=== PATIENT | male | born 1970 | race Caucasian/White ===

== ENCOUNTER → 2022-08-26 12:34 | Outpatient (CLI) | payer OTHER, SELFPAY ==
--- NOTE | ~2022-08-26 | CT_ITS ---
CT Scan of the Chest without Contrast: Clinical Indication: Dyspnea Technique: Contiguous sections were acquired throughout the chest without intravenous contrast. Dose reduction technique was used on this scan by utilizing automated exposure control and iterative recon struction technique. The dose-length product (DLP) was 793.59 mGy-cm. Findings: There is no evidence of any significant mediastinal, hilar or axillary lymphadenopathy. Calcified med iastinal and left hilar lymph nodes are noted. The mediastinal soft tissues appear normal. There is no evidence of pleural or pericardial effusion. 6 mm nodule along the right major fissure noted. There is a 5 mm noncalcified right lower lobe pulmon addie nodule (axial image 73). There is an additional 5 mm right basilar pulmonary nodule (axial image 82). Calcified left upper lobe granuloma noted. Images through the upper abdomen reveal no abnormalities. Impression: 5 mm right basilar noncalcified pulmonary nodules, as detailed above. According to Fleischner Society criteria, for a low-risk patient, no further follow-up required. For a high-risk patient, consider 1 2 month follow-up CT. Additional evidence of prior granulomatous disease. Reviewed, dictated and finalized at location . Impression: 5 mm right basilar noncalcified pulmonary nodules, as detailed above. According to Fleischner Society criteria, for a low-risk patient, no further follow-up r equired. For a high-risk patient, consider 12 month follow-up CT. Additional evidence of prior granulomatous disease.
== END ==
PROVIDERS: PCP Family Medicine; Visit Provider Family Medicine
DX: R06.00 Dyspnea, unspecified (principal); R91.8 Other nonspecific abnormal finding of lung field
CPT/HCPCS: 71250

== ENCOUNTER 2022-10-20 10:25 | Outpatient (CLI) | payer OTHER, SELFPAY ==
--- NOTE | 2022-10-20 11:32 | P.PCNPFT_ITS ---
PFT Procedure Performed PFT Procedure Performed Plethysmography (Lung Vol) Diffusing Cap (DLCO) Flow Vol Loop Spirometry w/o Bronchodil PFT Interpretation Lung volumes are unremarkable. Spirometry showed normal expiratory flow rates and a normal FEV1 to FVC ratio of 81%. No post-bronchodilator study was carried out. Lung diffusion capacity is within the normal range at 100% predicted. The flow-volume loop is unremarkable Impression: Spirometry, lung volumes, and lung diffusion capacity all within th e normal range.
== END 2022-10-20 10:26 | disposition home or self-care (01) ==
PROVIDERS: PCP Family Medicine; Visit Provider Family Medicine
DX: R06.00 Dyspnea, unspecified (principal)
CPT/HCPCS: 94375; 94726; 94729

== ENCOUNTER 2023-04-16 08:58 | Emergency (ER) | payer OTHER, SELFPAY ==
--- NOTE | 2023-04-16 09:04 | ED.GENADULT ---
HPI - General Adult General Chief complaint: Upper Respiratory Infection Stated complaint: Sore Throat History of Present Illness HPI narrative: 52 y/o male presented for c/o sore throat for one month. Takes azelastine spray and montelukast as well as omeprazole as directed. Denies increase in nasal drainage or congestion. Sore throat is worse in the morning. Hx WILFRIDO, compliant with cpap. Was unable to get in to see pcp or ENT. Denies cough, sob, n/v/d/f/c. Not taking anything otc for symptoms. Related Data Home Medications Medication Instructions Recorded Confirmed azelastine 137 mcg (0.1 %) nasal 2 spray intranasal BID 04/16/23 04/16/23 spray aerosol diclofenac sodium 75 mg 75 mg PO BID PRN joint pain 04/16/23 04/16/23 tablet,delayed release losartan 100 1 tablet PO DAILY 04/16/23 04/16/23 mg-hydrochlorothiazide 25 mg tablet montelukast 10 mg tablet 10 mg PO DAILY 04/16/23 04/16/23 omeprazole 20 mg capsule,delayed 20 mg PO DAILY 04/16/23 04/16/23 release Allergies Allergy/AdvReac Type Severity Reaction Status Date / Time poison wade extract Allergy Unknown Rash Verified 04/16/23 09:04 Grass Allergy Unknown Rash Uncoded 04/16/23 09:04 Review of Systems Review of Systems: CONSTITUTIONAL: Denies body aches, fever, chills, or sweats. EYES: Denies visual changes, redness, or discharge. ENT: Reports rhinorrhea, sore throat Denies congestion, or otalgia. CARDIOVASCULAR: Denies chest pain, palpitations, or edema. RESPIRATORY: Denies dyspnea. GASTROINTESTINAL: Denies abdominal pain, nausea, vomiting, or diarrhea. SKIN: Denies rash, itching, or wounds. MUSCULOSKELETAL: Denies back pain, joint pain, or myalgia. NEUROLOGIC: Denies headache PMFSH Past Medical History Medical History (Updated 04/16/23 @ 09:23 by Janelle Chaney APRN) HTN (hypertension) WILFRIDO (obstructive sleep apnea) Surgical History Surgical History (Updated 04/16/23 @ 09:23 by Janelle Chaney APRN) History of tonsillectomy Exam Narrative: GENERAL: well-appearing, no acute distress. EYES: conjunctivae clear ENT: Mucous membranes moist. TMs pearly holman with normal light reflex bilaterally; no tragal tenderness. Oropharynx not erythematous, without lesions. Tonsils and uvula absent. No drooling, no hoarseness, no trismus, uvula midline. No tripod positioning, hot potato voice, or soft palate swelling. NECK: Supple. No lymphadenopathy CHEST: Clear to auscultation, breath sounds equal. No respiratory distress, speaks in full sentences. HEART: Regular rate and rhythm. No murmur heard. SKIN: Warm, dry, no rash. NEURO: Alert and oriented x3. Course Course Emergency Course: Patient is aware of diagnosis, understands and agrees to treatment plan. Anticipatory guidance given. Patient agrees to follow-up as directed and is aware of reasons to seek care at the emergency department. Portions of this record may have been created with voice recognition software Level of Care: Express Care Visit Medical Decision Making MDM Narrative Medical decision making narrative: POS strep reviewed with pt. Discussed physical exam findings. Advised supportive measures and signs/symptoms to go to the ER. Pt is appropriate for outpt treatment and f/u. Differential Diagnosis Differential Diagnosis: Influenza, covid, sinusitis, OM, strep pharyngitis, URI Discharge Plan Discharge Clinical Impression: Strep pharyngitis Patient Disposition: Home, Self-Care Condition: Stable Instructions: Antibiotic Form, Strep Throat (ED) Additional Instructions: - Take the antibiotic as directed. Fever and sore throat typically resolve within one to three days. Most patients can return to work after 12 to 24 hours of antibiotic therapy, provided you are fever free and otherwise well. -Eat and drink things that are easy to swallow, like soft foods, cool liquids, tea with honey, or popsicles . -Salt water gargles and/or may use topical anesthetic
[2023-04-16 09:29] VITALS: BP 117/75; PULSE 81; RESP 16; TEMP 36.9; O2SAT 97
== END 2023-04-16 09:35 | disposition home or self-care (01) ==
PROVIDERS: Emergency Provider Nurse Practitioner Family; PCP Family Medicine
DX: J02.0 Streptococcal pharyngitis (principal); I10 Essential (primary) hypertension
CPT/HCPCS: 87880; 99213; G0463

== ENCOUNTER 2023-11-11 15:59 | Emergency (ER) | payer OTHER, SELFPAY ==
--- NOTE | 2023-11-11 15:59 | ED.URI ---
HPI - URI/Sore Throat General Chief Complaint: Upper Respiratory Infection Stated Complaint: SORE THROAT Time Seen by Provider: 11/11/23 15:59 Source: patient Mode of arrival: ambulatory Limitations: no limitations History of Present Illness HPI Narrative: Patient is a 52-year-old male who presents with 2 days of sore throat. Patient states it is just not going away. Patient has not taken anything for symptoms. Denies any fever, chills, nausea, vomiting, diarrhea, congestion, ear pain, cough. Patient strep throat in April. Related Data Home Medications Medication Instructions Recorded Confirmed diclofenac sodium 75 mg 75 mg PO BID PRN joint pain 04/16/23 11/11/23 tablet,delayed release losartan 100 1 tablet PO DAILY 04/16/23 11/11/23 mg-hydrochlorothiazide 25 mg tablet montelukast 10 mg tablet 10 mg PO DAILY 04/16/23 11/11/23 omeprazole 20 mg capsule,delayed 20 mg PO DAILY 04/16/23 11/11/23 release Allergies Allergy/AdvReac Type Severity Reaction Status Date / Time poison wade extract Allergy Unknown Rash Verified 04/16/23 09:04 Grass Allergy Unknown Rash Uncoded 04/16/23 09:04 Review of Systems Review of Systems: All systems reviewed & are unremarkable except as noted in HPI and below Constitutional: Constitutional: Denies body ache(s), Denies chills, Denies fatigue, Denies fever(s), Denies headache(s), Denies malaise and Denies weakness Eyes: Eyes: Denies blurry vision, Denies itchy eyes and Denies loss of vision ENT: Denies otalgia, Denies headache(s), Denies nasal congestion, Denies sinus pain and Reports sore throat Cardiovascular: Cardiovascular: Denies chest pain, Denies irregular heart rhythm and Denies dyspnea Respiratory: Respiratory: Denies cough and Denies dyspnea Gastrointestinal: Gastrointestinal: Denies abdominal pain, Denies diarrhea, Denies nausea and Denies vomiting Musculoskeletal: Musculoskeletal: Denies back pain, Denies myalgias and Denies arthralgias Integumentary/Breasts: Skin/Breast: Denies pruritus and Denies rash Neurologic: Denies headache(s), Denies loss of vision and Denies weakness Psychiatric: Psychiatric: Reports no additional psychiatric complaints Endocrine: Endocrine: Denies fatigue Allergic/Immunologic: Allergic/Immunologic: Denies itchy eyes PMFSH Past Medical History Medical History HTN (hypertension) WILFRIDO (obstructive sleep apnea) Surgical History Surgical History History of tonsillectomy Comments At time of signature, agree with nursing past medical, surgical, social and family history. There is no relevant family history pertinent to the presenting complaint. Exam Const: General: cooperative, healthy appearing, comfortable, no acute distress and well nourished Nutritional Appearance: well nourished Orientation/consciousness: patient oriented x3 Limitations: no limitations HENMT: Head: normal to inspection, normocephalic and atraumatic Ears: hearing grossly normal bilaterally, external ears normal, TM's normal bilaterally, EAC's normal and no periauricular adenopathy Face/Nose/Sinus: Normal external nose present, Normal nasal mucous membranes and turbinates present, normal facial exam, sinuses nontender and face symmetric Face and sinus: normal facial exam, sinuses nontender and face symmetric Mouth: Yes Normal oral and palatal mucosa present, Yes lip normal, Yes tongue normal, Yes Normal salivary glands and ducts present, Yes oropharynx normal and Yes moist mucous membranes Teeth and gingiva: dentition normal Throat: posterior oropharynx normal, tonsils normal and uvula midline Eyes: General: appearance normal, both eyes and all related structures Alignment and Position: alignment normal and position normal Periorbital: periorbital findings normal Eyelids: eyelids normal Pupils: Equal, round and reactive pupils present Neck: N
[2023-11-11 16:14] VITALS: BP 158/94; PULSE 82; RESP 14; TEMP 36.9; O2SAT 97
== END 2023-11-11 16:30 | disposition home or self-care (01) ==
PROVIDERS: Emergency Provider Nurse Practitioner Family; PCP Family Medicine
DX: J02.9 Acute pharyngitis, unspecified (principal); I10 Essential (primary) hypertension
CPT/HCPCS: 87081; 87880; 99213; G0463